=== PATIENT | male | born 1950 | race Caucasian/White ===

== ENCOUNTER 2021-01-17 11:36 | Outpatient (REF) | payer MEDICARE, SELFPAY ==
[2021-01-17 15:33] LABS: Prostate Specific Antigen 0.13 ng/mL (<0.05-4.0)
== END 2021-01-17 11:37 | disposition home or self-care (01) ==
LOC: HO.10HDL 11:36
PROVIDERS: Visit Provider Urology
DX: Z12.5 Encounter for screening for malignant neoplasm of prostate (principal); C61 Malignant neoplasm of prostate
CPT/HCPCS: 36415; 84153

== ENCOUNTER → 2021-01-20 10:30 | Outpatient (BNVA) | payer MEDICARE, SELFPAY | PROVIDERS: PCP Internal Medicine; Visit Provider Urology | DX: N52.9 Male erectile dysfunction, unspecified (principal); C61 Malignant neoplasm of prostate | CPT/HCPCS: 99212 ==

== ENCOUNTER → 2021-07-20 09:12 | Outpatient (BNVA) | payer MEDICARE, SELFPAY | PROVIDERS: Visit Provider Urology | CPT/HCPCS: Q3014 ==

== ENCOUNTER → 2022-01-25 09:18 | Outpatient (BNVA) | payer MEDICARE, SELFPAY | PROVIDERS: Visit Provider Urology | DX: N52.9 Male erectile dysfunction, unspecified (principal); C61 Malignant neoplasm of prostate | CPT/HCPCS: Q3014 ==

== ENCOUNTER → 2022-07-27 11:06 | Outpatient (BNVA) | payer MEDICARE, BC, SELFPAY | PROVIDERS: PCP Internal Medicine; Visit Provider Urology | DX: C61 Malignant neoplasm of prostate (principal) | CPT/HCPCS: 99212 ==

== ENCOUNTER 2022-09-26 11:00 | Outpatient (RCR) | payer MEDICARE, BC, SELFPAY | END 2022-10-22 13:40 | disposition home or self-care (01) | LOC: HO.PTWFD 11:00 | PROVIDERS: PCP Internal Medicine; Visit Provider Orthopaedic Surgery Foot and Ankle Surgery | DX: M76.812 Anterior tibial syndrome, left leg (principal) | CPT/HCPCS: 97110; 97140; 97150; 97161; 97535 ==

== ENCOUNTER → 2023-05-15 14:42 | Outpatient (BNVA) | payer MEDICARE, BC, SELFPAY | PROVIDERS: PCP Internal Medicine; Visit Provider Urology | DX: C61 Malignant neoplasm of prostate (principal); N52.9 Male erectile dysfunction, unspecified | CPT/HCPCS: Q3014 ==

== ENCOUNTER 2023-08-22 10:55 | Outpatient (REF) | payer MEDICARE, BC, SELFPAY | END 2023-08-22 10:56 | disposition home or self-care (01) | LOC: HO.HOSX 10:55 | PROVIDERS: PCP Internal Medicine; Visit Provider Orthopaedic Surgery | DX: M25.562 Pain in left knee (principal); M25.561 Pain in right knee | CPT/HCPCS: 73562; 99212 ==

== ENCOUNTER 2023-08-22 10:55 | Outpatient (AMB) | payer MEDICARE, BC, SELFPAY ==
--- NOTE | 2023-08-22 11:03 | MHC.OFFVIS ---
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 Pt states he has seen Dr. Li in the past. The patient states that he injured his right knee approximately 1 year ago. He twisted his knee had acute onset of pain. Since that time his symptoms have gotten worse in spite of continued non operative treatments. He has had left knee arthroscopic surgery in the past. He reports minimal discomfort in his left knee. He has had multiple injections in the past which gave him mild relief. He has also tried Tylenol and anti-inflammatory medicines which gave him minimal relief. He has done physical therapy for 12 weeks over the last 6 months which aggravated his pain. The patient states that his right knee will give out several times per day. Allergies No Known Allergies [No Known Allergies*] Allergy (Verified 08/22/23 11:03) [facility] Medical History Anemia Arthritis Hiatal hernia Erectile dysfunction following radiation therapy Elevated blood pressure reading in office with diagnosis of hypertension Prostate cancer Surgical History History of surgery Family History (Updated 08/22/23 @ 11:04 by Milly Bradley MA) Mother Melanoma Social History (Updated 08/22/23 @ 11:04 by Milly Bradley MA) Household Members: Spouse Housing: House Alcohol intake: current Alcohol intake frequency: holidays/special occasions only Patient Tobacco Use Status: Never used Tobacco Use of substances other than those prescribed or required for medical reasons: No Current occupational status: retired Physical Exam Const Other: Well-nourished well-developed very friendly male awake alert and oriented x3 in no acute distress Extrem Other: Bilateral lower extremity examination shows good capillary refill, no skin lesions noted, normal sensation light touch Right knee examination shows a minimal effusion, minimal crepitus with range of motion, tenderness along his medial joint line, positive Shandra's test, no instability Results Reviewed Results Reviewed: X-rays of the patient's bilateral knees show mild diffuse joint space narrowing, no acute bony abnormalities Assessment & Plan Assessment & Plan (1) Right knee pain: Code(s): M25.561 - Pain in right knee Plan: Mr. Suggs presents with right knee pain most likely due to a tear of his medial meniscus. Thus, I will send the patient for an MRI of his right knee for further evaluation. I will see him back once the MRI is completed to discuss the findings and treatment options. He will call me prior to that time should his symptoms worsen in any way. Feel free to call me at any time should questions regarding his orthopedic management arise. Thank you very much for asking me to see this very friendly gentleman. I spent 22 minutes in reviewing the patient's records and imaging studies, seeing the patient and documenting in the medical record. (2) Left knee pain: Code(s): M25.562 - Pain in left knee Orders: Orders XR knee RT 3V Today M25.561 - Pain in right knee XR knee LT 3V Today M25.562 - Pain in left knee MR knee RT wo con Today M25.561 - Pain in right knee Coding Level of Care Code Est Pt Level 2 (64580) Diagnoses Right knee pain M25.561 Left knee pain M25.562
== END 2023-08-22 11:48 | disposition home or self-care (01) ==
PROVIDERS: PCP Internal Medicine; Visit Provider Orthopaedic Surgery
DX: M25.561 Pain in right knee (principal); M25.562 Pain in left knee
CPT/HCPCS: 99212

== ENCOUNTER 2023-11-07 11:16 | Outpatient (REF) | payer MEDICARE, BC, SELFPAY ==
[2023-11-07 14:05] LABS: Prostate Specific Antigen 0.14 ng/mL (<0.05-4.0)
== END 2023-11-07 11:17 | disposition home or self-care (01) ==
LOC: HO.10HDL 11:16
PROVIDERS: Visit Provider Urology
DX: Z12.5 Encounter for screening for malignant neoplasm of prostate (principal); C61 Malignant neoplasm of prostate
CPT/HCPCS: 36415; 84153

== ENCOUNTER 2023-11-13 12:32 | Outpatient (AMB) | payer MEDICARE, BC, SELFPAY ==
--- NOTE | 2023-11-13 12:52 | A.OFFVIS_ITS ---
Intake Intake Visit Reasons: 6M PSA (set) Intake Note: Patient is Present for Telephone Follow Up For Urology Med: None Antibiotic Allergy: None Blood Thinner: None Allergies No Known Allergies [No Known Allergies*] Allergy (Verified 11/13/23 12:53) Medication List - Last Reconciled 11/13/23 by Bacilio Daley MD omeprazole 10 mg PO DAILY HPI HPI Comments History of Present Illness Details Jovan is a pleasant male. He is a patient of Dr. Goodwin. He is seen for the following urologic conditions - prostate cancer - erectile dysfunction Telemedicine Evaluation 15 min Consultation DoxNervogrid Brice Video attempted PSA remains low Discussed rectal urge. Recommend increase dietary fiber for bowel urgency Mild urge and frequency Six month follow-up PSA Prostate cancer group 3, initial therapy external beam radiation with hormone therapy March 2017 Diagnosed in November 2016 Margarito 4 + 3 Received radiation therapy with GnRH completed in March 2017 PSA 05/13 0.1, 01/15 0.13, 06/14 0.19, 12/16 0.12, 04/16 0.1, 11/16 0.14 Erectile dysfunction Minimal erections Does achieve orgasm without erection Effective erections with tadalafil 20 mg PFSH Medical History Anemia Arthritis Hiatal hernia Erectile dysfunction following radiation therapy Elevated blood pressure reading in office with diagnosis of hypertension Prostate cancer Surgical History History of surgery Family History Mother Melanoma Social History Household Members: Spouse Housing: House Alcohol intake: current Alcohol intake frequency: holidays/special occasions only Patient Tobacco Use Status: Never used Tobacco Current occupational status: retired Review of Systems Const All systems reviewed & are unremarkable except as noted in HPI and below Reports no additional complaints Resp Reports no additional complaints GI Reports no additional complaints Reports as per HPI Musc Reports no additional complaints Physical Exam Telemedicine evaluation Appropriate responses Regular breathing rate and rhythm HEENT Head: Yes normal to inspection Ears: hearing grossly normal bilaterally Eyes General: appearance normal, both eyes and all related structures Neck Neck: Yes normal visual inspection Chest Chest palpation & inspection: normal inspection of the chest Resp Effort & Inspection: normal respiratory effort and able to speak in complete sentences Assessment & Plan Assessment & Plan (1) Prostate cancer: Comment: 04/10 Gl 4+3 EXBRT with short term hormones Code(s): C61 - Malignant neoplasm of prostate (2) Erectile dysfunction: Code(s): N52.9 - Male erectile dysfunction, unspecified Plan Six month follow-up PSA Orders: Orders Prostate Specific Antigen 6 Months C61 - Malignant neoplasm of prostate Patient Instructions: Imaging studies, laboratory and physical exam results were discussed and reviewed in detail. No major barriers to patient understanding were identified. An opportunity to ask questions regarding the treatment plan was provided. All questions were answered. The patient expressed understanding and agreement with the above treatment plan. The patient is aware they should contact our office by phone for worsening of their current condition or the appearance of new urologic symptoms. Compliance is encouraged with any medications and followup testing that is ordered. It is a privilege to participate in the urologic care of your patient. If you have any questions or concerns regarding treatment for the above conditions, or other urologic issues, please do not hesitate to contact me. The office telephone contact is [phone]. This note is constructed using voice recognition software. While every effort has been made to ensure accuracy planning management it specialist errors may have been included. Yours sincerely, Dr aBcilio Daley MD, [facility] - Urology Providers of Expert, Compassionate Care for the Genitourinary System Telehealth Telehealth Location of provider rendering services: practice address Location of patient: address on file Patient Identification confirmed using: Name, : Yes Telehealth method: video Patient verbally consented to treatment: Yes Patient verbally consented to billing insurance company: Yes Patient informed of any privacy concerns related to visit: Yes Coding Level of Care Code Tele Est Pt Level 3 (56561) Diagnoses Prostate cancer C61 Erectile dysfunction N52.9
== END 2023-11-13 15:04 | disposition home or self-care (01) ==
LOC: HO.HUSH 12:32
PROVIDERS: PCP Internal Medicine; Visit Provider Urology
DX: C61 Malignant neoplasm of prostate (principal); N52.9 Male erectile dysfunction, unspecified
CPT/HCPCS: 99213

== ENCOUNTER → 2023-11-13 12:32 | Outpatient (BNVA) | payer MEDICARE, BC, SELFPAY | PROVIDERS: PCP Internal Medicine; Visit Provider Urology ==

== ENCOUNTER 2024-01-02 10:26 | Outpatient (REF) | payer MEDICARE, BC, SELFPAY ==
--- NOTE | ~2024-01-02 | MR_ITS ---
EXAMINATION: MR KNEE WITHOUT CONTRAST, RIGHT CLINICAL INFORMATION: Pain in the right knee COMPARISON: X-ray the right knee July 2023 TECHNIQUE: MRI of the knee without contrast was performed using routine sequences on a high-field scanner. FINDINGS: MENISCI: Medial Meniscus: Intact Lateral Meniscus: Intact LIGAMENTS: Cruciate: Intact Collateral: Intact EXTENSOR MECHANISM: Intact ARTICULAR CARTILAGE/BONE: Patellofemoral Compartment: There is nonuniform up to high-grade cartilage loss involving the medial facet and median ridge of the patella with subchondral cystic change and edema. This involves the proximal half of the patella. The trochlear cartilage is normal. 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 Tibial cartilage normal. Overall mild/focal arthrosis JOINT FLUID AND BURSAE: Normal MR/MR knee RT wo con IMPRESSION: 1. 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 2. Mild/focal arthrosis of the posterior nonweightbearing portion of the lateral femoral condyle.
== END 2024-01-02 10:27 | disposition home or self-care (01) ==
LOC: HO.MRI 10:26
PROVIDERS: PCP Internal Medicine; Visit Provider Orthopaedic Surgery
DX: M25.561 Pain in right knee (principal)
CPT/HCPCS: 73721

== ENCOUNTER 2024-05-07 11:47 | Outpatient (REF) | payer MEDICARE, BC, SELFPAY | END 2024-05-07 11:48 | disposition home or self-care (01) | LOC: HO.10HDL 11:47 | PROVIDERS: Visit Provider Urology | DX: C61 Malignant neoplasm of prostate (principal); Z12.5 Encounter for screening for malignant neoplasm of prostate | CPT/HCPCS: 36415; 84153 ==

== ENCOUNTER 2024-05-19 10:35 | Outpatient (AMB) | payer MEDICARE, BC, SELFPAY ==
--- NOTE | 2024-05-19 10:37 | A.OFFVIS_ITS ---
Intake Visit Reasons: 6M PSA Intake Note: Patient is Present for Telephone Follow Up PSA Urology Med:None Antibiotic Allergy: None Blood Thinner:None Allergies No Known Allergies [No Known Allergies*] Allergy (Verified 05/19/24 10:39) HPI Comments Details: Jovan is a pleasant male. He is a patient of Dr. Goodwin. He is seen for the following urologic conditions - prostate cancer - erectile dysfunction Telemedicine Evaluation 15 min Consultation Doximity Brice Video attempted PSA remains low Mild urge and frequency Six month follow-up PSA Prostate cancer group 3, initial therapy external beam radiation with hormone therapy March 2017 Diagnosed in November 2016 Margarito 4 + 3 Received radiation therapy with GnRH completed in March 2017 PSA 05/13 0.1, 01/15 0.13, 06/14 0.19, 12/16 0.12, 04/16 0.1, 11/16 0.14, 05/18 0.1 Erectile dysfunction Minimal erections Does achieve orgasm without erection Effective erections with tadalafil 20 mg PFSH Medical History Anemia Arthritis Hiatal hernia Erectile dysfunction following radiation therapy Elevated blood pressure reading in office with diagnosis of hypertension Prostate cancer Surgical History History of surgery Family History Mother Melanoma Social History Household Members: Spouse Housing: House Alcohol intake: current Alcohol intake frequency: holidays/special occasions only Patient Tobacco Use Status: Never used Tobacco Current occupational status: retired Review of Systems Const All systems reviewed & are unremarkable except as noted in HPI and below Reports no additional complaints Resp Reports no additional complaints GI Reports no additional complaints Reports as per HPI Musc Reports no additional complaints Physical Exam Telemedicine evaluation Appropriate responses Regular breathing rate and rhythm HEENT Head: Yes normal to inspection Ears: hearing grossly normal bilaterally Eyes General: appearance normal, both eyes and all related structures Neck Neck: Yes normal visual inspection Chest Chest palpation & inspection: normal inspection of the chest Resp Effort & Inspection: normal respiratory effort and able to speak in complete sentences Telehealth Telehealth Location of provider rendering services: practice address Location of patient: address on file Patient Identification confirmed using: Name, : Yes Telehealth method: video Patient verbally consented to treatment: Yes Patient verbally consented to billing insurance company: Yes Patient informed of any privacy concerns related to visit: Yes Assessment & Plan Assessment & Plan (1) Prostate cancer: Comment: 04/10 Gl 4+3 EXBRT with short term hormones Code(s): C61 - Malignant neoplasm of prostate Category: Medical (2) Erectile dysfunction: Code(s): N52.9 - Male erectile dysfunction, unspecified Category: Medical Plan Six-month follow-up PSA office Orders: Orders Prostate Specific Antigen 6 Months C61 - Malignant neoplasm of prostate Patient Instructions: Imaging studies, laboratory and physical exam results were discussed and reviewed in detail. No major barriers to patient understanding were identified. An opportunity to ask questions regarding the treatment plan was provided. All questions were answered. The patient expressed understanding and agreement with the above treatment plan. The patient is aware they should contact our office by phone for worsening of their current condition or the appearance of new urologic symptoms. Compliance is encouraged with any medications and followup testing that is ordered. It is a privilege to participate in the urologic care of your patient. If you have any questions or concerns regarding treatment for the above conditions, or other urologic issues, please do not hesitate to contact me. The office telephone contact is [phone]. This note is constructed using voice recognition software. While every effort has been made to ensure accuracy outplacement consultant errors may have been included. Yours sincerely, Dr Bacilio Daley MD, [facility] - Urology Providers of Expert, Compassionate Care for the Genitourinary System Coding Level of Care Code Tele Est Pt Level 3 (58780) Diagnoses Prostate cancer C61 Erectile dysfunction N52.9
== END 2024-05-19 11:29 | disposition home or self-care (01) ==
LOC: HO.HUSH 10:35
PROVIDERS: PCP Internal Medicine; Visit Provider Urology
DX: C61 Malignant neoplasm of prostate (principal); N52.9 Male erectile dysfunction, unspecified
CPT/HCPCS: 99213

== ENCOUNTER → 2024-05-19 10:35 | Outpatient (BNVA) | payer MEDICARE, BC, SELFPAY | PROVIDERS: PCP Internal Medicine; Visit Provider Urology ==

== ENCOUNTER 2024-11-11 12:57 | Outpatient (AMB) | payer MEDICARE, BC, SELFPAY ==
--- NOTE | 2024-11-11 13:01 | MHC.OFFVIS ---
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 He is a patient of Dr. Goodwin. He is seen for the following urologic conditions - prostate cancer - erectile dysfunction Reports low PSA Well-controlled symptoms Continue surveillance Grade group 3 disease follow q6m for 10 years Six month follow-up PSA Prostate cancer group 3, initial therapy external beam radiation with hormone therapy March 2017 Diagnosed in November 2016 Margarito 4 + 3 Received radiation therapy with GnRH completed in March 2017 PSA 05/13 0.1, 01/15 0.13, 06/14 0.19, 12/16 0.12, 04/16 0.1, 11/16 0.14, 05/18 0.1 Erectile dysfunction Minimal erections Does achieve orgasm without erection Effective erections with tadalafil 20 mg PFSH Medical History Anemia Arthritis Hiatal hernia Erectile dysfunction following radiation therapy Elevated blood pressure reading in office with diagnosis of hypertension Prostate cancer Surgical History History of surgery Family History Mother Melanoma Social History Household Members: Spouse Housing: House Alcohol intake: current Alcohol intake frequency: holidays/special occasions only Patient Tobacco Use Status: Never used Tobacco Current occupational status: retired Review of Systems Const Denies chills and Denies fever(s) Card Reports no additional complaints and Denies syncope Resp Denies cough GI Denies abdominal pain and Denies heartburn Reports as per HPI and Denies change in libido Neuro Denies syncope Psych Denies change in libido Endo Denies change in libido Physical Exam Const General: cooperative, healthy appearing, comfortable and no acute distress Orientation/consciousness: patient oriented x3 HEENT Face and sinus: Yes normal facial exam Mouth: moist mucous membranes Neck Neck: Yes normal visual inspection, Yes full ROM and Yes trachea midline Chest Chest palpation & inspection: normal inspection of the chest Resp Effort & Inspection: normal respiratory effort, able to speak in complete sentences and no respiratory distress GI Inspection: Yes normal to inspection Back/Spine/Pelvis Cervical Spine: normal cervical lordosis Thoracic/Lumbar Spine: thoracic and lumbar spine normal to inspection Skin General skin exam: no rashes or lesions noted Neuro General: patient oriented x3, gait normal, tone normal and moves all extremities Extrem General: Yes normal to inspection and Yes capillary refill normal Assessment & Plan Assessment & Plan (1) Prostate cancer: Comment: 04/10 Gl 4+3 EXBRT with short term hormones Code(s): C61 - Malignant neoplasm of prostate Category: Medical (2) Erectile dysfunction: Code(s): N52.9 - Male erectile dysfunction, unspecified Category: Medical Plan G Code G2211 Has been applied in accordance with CMS guidelines ( Medicare and Medicaid programs; [place] 2023 Payment Policies ) to convey the inherent complexity in ongoing patient care within the urology clinic. This deliberate utilization aligns with the visits complexity associated with medical care services serving as a focal point for necessary healthcare, addressing the patient's singular serious or complex condition. This judicious use ensure was appropriate reimbursement, especially in the context of managing such conditions within our specialized, longitudinal urologic practice. This patient has a complex and chronic urologic condition that requires longitudinal follow-up. [facility], Medicare and Medicaid programs; [place] 2023 Payment Policies Fed. Reg 88 (51): [id number] (Jul.012022) Six-month follow-up Patient Instructions: Imaging studies, laboratory and physical exam results were discussed and reviewed in detail. No major barriers to patient understanding were identified. An opportunity to ask questions regarding the treatment plan was provided. All questions were answered. The patient expressed understanding and agreement with the above treatment plan. The patient is aware they should contact our office by phone for worsening of their current condition or the appearance of new urologic symptoms. Compliance is encouraged with any medications and followup testing that is ordered. It is a privilege to participate in the urologic care of your patient. If you have any questions or concerns regarding treatment for the above conditions, or other urologic issues, please do not hesitate to contact me. The office telephone contact is [phone]. This note is constructed using voice recognition software. While every effort has been made to ensure accuracy sales and merchandising representative errors may have been included. Yours sincerely, Dr Bacilio Daley MD, [facility] - Urology Providers of Expert, Compassionate Care for the Genitourinary System Coding Level of Care Code Est Pt Level 3 (61893) Complex EM visit Add On G2211 Diagnoses Prostate cancer C61 Erectile dysfunction N52.9
== END 2024-11-11 13:51 | disposition left against medical advice (07) ==
PROVIDERS: PCP Internal Medicine; Visit Provider Urology
DX: C61 Malignant neoplasm of prostate (principal); N52.9 Male erectile dysfunction, unspecified
CPT/HCPCS: 99213; G2211

== ENCOUNTER → 2024-11-11 12:57 | Outpatient (BNVA) | payer MEDICARE, BC, SELFPAY | PROVIDERS: PCP Internal Medicine; Visit Provider Urology | DX: C61 Malignant neoplasm of prostate (principal); N52.35 Erectile dysfunction following radiation therapy | CPT/HCPCS: 99212 ==